=== PATIENT | female | born 1980 | race Caucasian/White ===

== ENCOUNTER 2016-04-01 09:45 | Inpatient (IN) | payer BC ==
[~2016-04-01] VITALS: Ht 175.3 cm; Wt 99.5 kg
[~2016-04-01 09:45] MED LIST: PRENTAB26 PO; PROB1TAB16 PO
[2016-04-01] MEDS ORDERED: LACTATED RINGER'S 1000ML 1,000 ML IV PRN (10:30)
[2016-04-01] MEDS ORDERED: LACTATED RINGER'S 1000ML 1,000 ML IV SCH (10:30)
[2016-04-01] MEDS ORDERED: PENICILLIN G POTASSIUM IV 6 MU in DEXTROSE 5% 250ML 250 ML IV ONE (10:45)
[2016-04-01 10:59] LABS: HEMATOCRIT 36.1 % (37-47); MEAN CELL VOLUME 89.1 fL (80-100); MEAN CORPUSCULAR HEMOGLOBIN 32.1 pg (25-34); MEAN PLATELET VOLUME 11.1 fL (7.4-10.4); PLATELET COUNT 218 K/uL (130-400); RED BLOOD COUNT 4.05 M/uL (4.2-5.4); WHITE BLOOD COUNT 11.63 K/uL (4.8-10.8)
--- NOTE | 2016-04-01 11:41 | HISTORY & PHYSICAL EXAMINATION ---
DATE OF ADMISSION: 04/01/2016 CHIEF COMPLAINT: Contractions. HISTORY OF PRESENT ILLNESS: The patient is a 35-year-old at 41 weeks and 1 day of gestation who has been feeling contractions since 6:30 a.m. this morning. They have been coming every 5 minutes and they have been getting more regular and more painful. She had 1 time small amount of leakage, which was clear and nothing since then. No vaginal bleeding and she reports good movements. She denies headaches, change in her vision, nausea, vomiting, epigastric or right upper quadrant pain. She denies fevers, chills, chest pain, shortness of breath or leg pain. Her has been uncomplicated except 1) Advanced maternal age. She had panorama testing which was with low risk. 2) GBS positive PAST MEDICAL HISTORY: As above and generalized anxiety disorder. She sees a therapist, no medications since September 2015. PAST SURGICAL HISTORY: LEEP procedure of cervix in 2012 and D\T\C in 1995 and 1996 and ear surgery. MEDICATIONS: vitamins, vitamin D3 1000 units a day and probiotic. ALLERGIES: No known drug allergies. SOCIAL HISTORY: The patient denies smoking, alcohol or drug use. GYNECOLOGIC HISTORY: The patient has a history of abnormal Pap smears for which she had LEEP procedure in 2012, normal Paps since then. The patient denies any history of STDs including Chlamydia, gonorrhea, or herpes. OBSTETRICAL HISTORY: She had a therapeutic in 1995 with D\T\C, again repeat one in 1996 with D\T\C and this is her third . LABS: Her blood type is A positive, antibody screen negative. H\T\H was 13/36, platelets 288. GC chlamydia cultures were negative, rubella titer positive, RPR nonreactive, hepatitis B surface antigen negative, HIV negative. Her MSAFP testing was negative. Panorama screen testing was negative. Glucola was 106 mg per deciliter. H\T\H was 12/36. GBS culture was positive on February 17. PHYSICAL EXAMINATION: GENERAL: The patient is alert, oriented x3, not in acute distress. VITAL SIGNS: Stable, afebrile, blood pressure 136/84, respirations 18, temperature 98, pulse 86. CARDIOVASCULAR SYSTEM: S1, S2, RRR. LUNGS: Clear to auscultation bilaterally. ABDOMEN: Soft, gravid, Joel 8-8.5 pounds. EXTREMITIES: Nontender, no edema. PELVIC: Speculum shows cervix with bulging membranes. No pulling and the cervix is friable and bleeding upon touch. Nitrazine testing was not performed due to active bleeding and ferning is negative. Her cervix is 5-6 cm dilated, 80%, -2 with bulging membranes and vertex. NST shows heart rate 140s, category 1. Tocometer contractions every 2-3 minutes. ASSESSMENT AND PLAN: The patient is a 35-year-old -0-2-0, at 41 weeks and 1 day of gestation presenting with contractions and in active labor. Vital signs stable, afebrile. heart rate reassuring. GBS positive. Plan is admit, IV penicillin and expecting management for now. The patient declines epidural or any other pain managements. She has plan. All questions were answered. HUNTER
[2016-04-01 12:27] VITALS: Ht 175.3 cm; Wt 99.5 kg
[2016-04-01] MEDS ORDERED: CHOL400T5 (12:33)
[2016-04-01] MEDS ORDERED: INFLUENZA ADMINISTRATION CHARGE ONE (14:45)
[2016-04-01] MEDS ORDERED: INFLUENZA VIRUS QUAD VACCINE 0.5 ML SYR IM. ONE (14:45)
[2016-04-01] MEDS: PENICILLIN G POTASSIUM IV 3 MU in DEXTROSE 5% 100ML 100 ML IV PRN ×3 (15:01→22:41)
[2016-04-01] MEDS ORDERED: BUPIVACAINE 0.25% 30 ML VIAL ONE (18:47)
[2016-04-01] MEDS ORDERED: EpHEDrine SULFATE INJ 50 MG/ML AMP ONE (18:47)
[2016-04-01] MEDS ORDERED: FENTANYL 2MCG/ML ROPIV 1.25MG/ML 100ML BAG EPI ONE (18:47)
[2016-04-01] MEDS ORDERED: FENTANYL CITRATE INJ 50 MCG/1 ML 2 ML VIAL ONE (18:48)
[2016-04-01] MEDS ORDERED: LACTATED RINGER'S 1000ML 500 ML IV PRN (19:46)
[2016-04-01] MEDS ORDERED: NALOXONE HCL INJ 1 MG in SODIUM CHLORIDE 0.9% 1000ML 1,000 ML IV PRN ×4 (19:46)
[2016-04-01] MEDS ORDERED: FENTANYL 2MCG/ML ROPIV 1.25MG/ML 100ML BAG EPI PRN (20:00)
[2016-04-01] MEDS ORDERED: DiphenhydrAMINE HCL 50 MG/ML VIAL IV PRN (20:00)
[2016-04-01] MEDS ORDERED: ONDANSETRON INJ 2 MG/ML 2 ML VIAL IV PRN (20:00)
[2016-04-01] MEDS ORDERED: PROMETHAZINE HCL INJ 25 MG in SODIUM CHLORIDE 0.9% 50ML 50 ML IV PRN (20:00)
[2016-04-01] MEDS ORDERED: NALBUPHINE HCL INJ 10 MG/ML AMP IV PRN (20:00)
[2016-04-01] MEDS ORDERED: EpHEDrine SULFATE INJ 50 MG/ML AMP IV PRN (20:00)
[2016-04-01] MEDS ORDERED: NALOXONE HCL INJ 0.4 MG/1 ML VIAL/CARP IV PRN (20:00)
[2016-04-01] MEDS ORDERED: NURSING VERBAL MED ORDER ONE (23:30)
[2016-04-01] MEDS ORDERED: CALCIUM CARBONATE 500 MG CHEWABLE PO PRN (23:30)
[2016-04-02] MEDS ORDERED: OXYTOCIN 30 UNITS/500ML NSS IV ONE (00:09)
[2016-04-02] MEDS ORDERED: CEFAZOLIN SOD 2000 MG in DEXTROSE 5% 50ML IV SCH (00:45)
[2016-04-02] MEDS ORDERED: NURSING VERBAL MED ORDER ONE ×2 (00:45→04:30)
[2016-04-02] MEDS ORDERED: LACTATED RINGER'S 1000ML 1,000 ML IV SCH ×3 (01:03→05:00)
[2016-04-02] MEDS ORDERED: ACETAMINOPHEN 325 MG TAB PO PRN (01:15)
[2016-04-02] MEDS ORDERED: SUPERCREAM 0.870 % 15GM JAR EXT PRN (01:15)
[2016-04-02] MEDS ORDERED: OXYCODONE/ACETAMINOPHEN 5-325 TAB PO PRN (01:15)
[2016-04-02] MEDS ORDERED: DIPHTHERIA/TETANUS/PERTUSSIS 0.5 ML SYR/VIAL IM. ONE (01:15)
[2016-04-02] MEDS ORDERED: MEASLES, MUMPS & RUBELLA VIRUS VIAL SQ. ONE (01:15)
[2016-04-02] MEDS ORDERED: BENZOCAINE 20% AER SPR 82.5 GM CAN EXT PRN (01:15)
[2016-04-02] MEDS ORDERED: HYDROCORTISONE ACETATE 25 MG SUPP PR PRN (01:15)
[2016-04-02] MEDS ORDERED: LANOLIN OINT EXT PRN ×2 (01:15)
[2016-04-02] MEDS ORDERED: OXYTOCIN 30 UNITS/500ML NSS IV PRN (01:15)
[2016-04-02] MEDS ORDERED: GENTAMICIN CONSULT ACTIVE PRN (01:30)
[2016-04-02] MEDS: AMPICILLIN IV 2,000 MG in SODIUM CHLOR 0.9% AD-VAN 100ML 100 ML IV SCH ×4 (02:32→19:55)
[2016-04-02] MEDS: IBUPROFEN 600 MG TAB PO PRN ×5 (03:09→21:16)
[2016-04-02] MEDS: GENTAMICIN INJ 150 MG in DEXTROSE 5% 100ML 100 ML IV SCH ×3 (03:10→18:43)
[2016-04-02 03:20] VITALS: BP 135/75; PULSE 110; TEMP 36.7; O2SAT 95
--- NOTE | 2016-04-02 04:02 | DELIVERY SUMMARY ---
DATE OF OPERATION: 04/02/2016 TIME OF DELIVERY OF BABY: 0020. TIME OF DELIVERY OF PLACENTA: 0025. DETAILS OF DELIVERY: The patient was found to be fully dilated and desired to push. She pushed for about 1 hour and 20 minutes. heart rate was found to be tachycardic, around 170s-190s, and the head was . Maternal perineum was found to be short and recommended a mediolateral episiotomy to prevent rectal or anal sphincter injury. The patient agreed with the plan. A mediolateral episiotomy was opened on the right side and head was delivered without difficulty. Baby was facing upward with occiput posterior position. There was a tight nuchal cord around the neck and around the body, which was reduced, while delivering the shoulders with minimal traction and then the baby was handed off to the mother when the baby was found to be passing meconium. Mouth and nose were suctioned. Baby was vigorously crying. Mother desired delayed cord clamping. Cord was clamped after 2 minutes and then cut, it was a 3-vessel cord. Cord blood was obtained. Vagina and perineum were checked for lacerations. There was only right mediolateral episiotomy, no other lacerations were found. Rectal exam was done and confirmed to be second-degree laceration. Good sphincter tone was noted. Gloves were changed. Placenta was found to be in the vagina, delivered spontaneously intact and complete. Uterus was explored. There were some membranes in the lower uterine segment, they were removed, and the upper side of the uterus was empty. Fundus was firm. Lower segment was cleared off all clots and debris. Maternal temperature was felt to be high during this exam and her temperature during second stage of labor was 99.1 Fahrenheit and right after delivery it was 102.3 Fahrenheit. Maternal tachycardia was also noted. Decision was made to start an antibiotic for suspected intraamniotic infection and antibiotic was ordered. Then, the episiotomy was repaired with 2-0 Vicryl in a running locked fashion, bringing the vaginal mucosa together, perineal body muscles and bulbocavernosus muscles together, skin in a subcuticular fashion. Excellent hemostasis was achieved. Rectal exam was done and found to have good sphincter tone, no sutures were felt. Gloves were changed. Mother and baby tolerated the procedure well. Sponge, lap, needle and instrument counts were correct x2. Baby was a viable female , Apgars 8/9. Weight is pending. No complications happened. I was present during the whole procedure. I attest to the content of the Intraoperative Record and any orders documented therein. Any exceptions are noted below. MTDD
[2016-04-02 07:30] VITALS: BP 116/69; PULSE 87; TEMP 36.7; O2SAT 96
[2016-04-02] MEDS: FERROUS SULFATE 325 MG TAB PO SCH (08:04)
[2016-04-02] MEDS: PRENATAL VITAMIN TAB PO SCH (08:04)
[2016-04-02] MEDS: DOCUSATE SODIUM 100 MG CAP PO SCH ×2 (08:04→19:55)
[2016-04-02 08:22] LABS: HEMATOCRIT 29.8 % (37-47); MEAN CELL VOLUME 88.7 fL (80-100); MEAN CORPUSCULAR HEMOGLOBIN 31.5 pg (25-34); MEAN CORPUSCULAR HGB CONC 35.6 g/dl (32-36); PLATELET COUNT 185 K/uL (130-400); RED BLOOD COUNT 3.36 M/uL (4.2-5.4); WHITE BLOOD COUNT 24.75 K/uL (4.8-10.8)
--- NOTE | 2016-04-02 09:10 | Anesthesia Procedure Note ---
Anesthesia Epidural Removal Nt Date & Time Apr 02, 2016 at 09:10 Vital Signs Pain Intensity: 3.5 Vital Signs Past 12 Hours Date Time Temp Pulse Resp B/P Pulse Ox O2 Delivery O2 Flow Rate FiO2 04/02/16 07:30 36.7 87 16 116/69 96 Room Air 04/02/16 03:20 95 Room Air 04/02/16 03:20 36.7 110 18 135/75 95 Room Air Notes Mental Status: alert / awake / arousable, participated in evaluation Nausea / Vomiting: adequately controlled Pain: adequately controlled Airway Patency, RR, SpO2: stable & adequate BP & HR: stable & adequate Hydration State: stable & adequate Neuraxial Anesthesia: was administered Anesthetic Complications: no major complications apparent, pt satisfied with anesthetic care Epidural: removed without complications, with tip intact
[2016-04-02 12:30] VITALS: BP 121/68; PULSE 91; TEMP 36.6
--- NOTE | 2016-04-02 15:37 | Pharmacy Progress Note ---
Pharmacy Antibiotic Consult Date of Service: Apr 02, 2016. Pharmacy Dosing Scope Pharmacy is consulted to initiate Gentamicin IV dosing therapy, order appropriate labs and adjust drug dose/frequency. Subjective The patient is a 35 year old female admitted on Apr 01, 2016 at 10:31. Objective Height (Feet): 5 Height (Inches): 9.00 Weight (Kilograms): 99.500 Lab Results (24hrs): Laboratory Tests Test 04/02/16 07:41 White Blood Count 24.75 K/uL Assessment & Plan 35 year old female receiving empiric ampicillin and gentamicin for suspected intraamniotic infection. Plan Will continue ordered dose of Gentamicin 150 mg (1.9 mg/kg) IV every 8 hours as ordered by OB physician. Peak and trough level ordered for 04/03. Peak after the 0300 dose and trough prior to the 1100 dose. Goal peak level estimate: between 0.5 - 1.5 mcg/mL. Goal trough level estimate: between 4 - 7 mcg/mL. Pharmacy will continue to follow and will adjust dose/frequency as necessary. Thank you
[2016-04-02 16:25] VITALS: BP 129/80; PULSE 86; TEMP 36.5; O2SAT 96
[2016-04-02 20:05] VITALS: BP 126/75; PULSE 86; TEMP 36.5; O2SAT 95
[2016-04-03 00:15] VITALS: BP 117/75; PULSE 79; TEMP 36.6
[2016-04-03] MEDS: AMPICILLIN IV 2,000 MG in SODIUM CHLOR 0.9% AD-VAN 100ML 100 ML IV SCH ×5 (01:53→20:22)
[2016-04-03] MEDS: GENTAMICIN INJ 150 MG in DEXTROSE 5% 100ML 100 ML IV SCH ×3 (02:57→19:15)
[2016-04-03] MEDS ORDERED: GENT. PEAK 1 EA IV SCH (03:00)
[2016-04-03] MEDS: IBUPROFEN 600 MG TAB PO PRN ×3 (03:06→15:17)
[2016-04-03 04:00] VITALS: BP 120/78; PULSE 80; TEMP 36.7
[2016-04-03 06:04] LABS: CREATININE 0.74 mg/dl (0.60-1.20)
[2016-04-03 08:00] VITALS: BP 132/84; PULSE 98; TEMP 36.5
[2016-04-03] MEDS: FERROUS SULFATE 325 MG TAB PO SCH (08:20)
[2016-04-03] MEDS: DOCUSATE SODIUM 100 MG CAP PO SCH ×2 (08:20→20:22)
[2016-04-03] MEDS: PRENATAL VITAMIN TAB PO SCH (08:21)
[2016-04-03 11:09] LABS: BASO % 0.2 %; BASO ABS # 0.03 K/uL (0-0.2); COMPLETE YES; EOS % 1.3 %; HEMATOCRIT 29.4 % (37-47); IG% 0.3 %; LYMPH % 19.7 %; LYMPH ABS # 2.88 K/uL (1.2-3.4); MEAN CELL VOLUME 89.9 fL (80-100); MEAN CORPUSCULAR HEMOGLOBIN 31.5 pg (25-34); MEAN PLATELET VOLUME 9.9 fL (7.4-10.4); NEUT % 72.5 %; PLATELET COUNT 167 K/uL (130-400); RED BLOOD COUNT 3.27 M/uL (4.2-5.4)
--- NOTE | 2016-04-03 11:13 | OB/GYN Progress Note ---
MDS COORDINATOR Progress Note Date of Service: Apr 03, 2016. Patient is seen and examined. She feels well, no complaints. Ambulating without dizziness Voiding without difficulty Tolerating regular diet with out N&V Bleeding is minimal No fever/ chills/ CP/ SOB/ N&V/ Leg pain Breast feeding without problems Date Time Temp Pulse Resp B/P Pulse Ox O2 Delivery O2 Flow Rate FiO2 04/03/16 04:00 36.7 80 18 120/78 Room Air 04/03/16 00:15 36.6 79 18 117/75 Room Air 04/03/16 00:15 Room Air 04/02/16 20:05 36.5 86 18 126/75 95 Room Air 04/02/16 16:25 36.5 86 16 129/80 96 Room Air 04/02/16 16:25 96 Room Air 04/02/16 12:30 36.6 91 18 121/68 Room Air Last 24 Hours Test 04/03/16 05:00 04/03/16 05:07 04/03/16 10:30 Creatinine 0.74 mg/dl Est Creatinine Clear Calc Drug Dose 132.0 ml/min Estimated GFR () 120.8 Estimated GFR (Non- 104.2 Gentamicin Level Peak 4.8 mcg/ml White Blood Count 14.60 K/uL Red Blood Count 3.27 M/uL Hemoglobin 10.3 g/dL Hematocrit 29.4 % Mean Corpuscular Volume 89.9 fL Mean Corpuscular Hemoglobin 31.5 pg Mean Corpuscular Hemoglobin Concent 35.0 g/dl Platelet Count 167 K/uL Mean Platelet Volume 9.9 fL Neutrophils (%) (Auto) 72.5 % Lymphocytes (%) (Auto) 19.7 % Monocytes (%) (Auto) 6.0 % Eosinophils (%) (Auto) 1.3 % Basophils (%) (Auto) 0.2 % Neutrophils # (Auto) 10.57 K/uL Lymphocytes # (Auto) 2.88 K/uL Monocytes # (Auto) 0.88 K/uL Eosinophils # (Auto) 0.19 K/uL Basophils # (Auto) 0.03 K/uL RDW Standard Deviation 47.7 fL RDW Coefficient of Variation 14.5 % Immature Granulocyte % (Auto) 0.3 % Immature Granulocyte # (Auto) 0.05 K/uL PE: General: Alert, orientedx3, NAD Abd: soft, NT, fundus firm, below Umbilicus Perineum intact, Lochia rubra minimal Ext; NT, no edema AP: 35 yo s/p , ppd# 1, on IV Amp/Gent for suspected intraamniotic infection VSS Afebrile doing well Continue routine care All questions were answered D/C home tomorrow
--- NOTE | 2016-04-03 13:06 | Pharmacy Progress Note ---
Pharmacy Antibiotic Prog Note Date of Service: Apr 03, 2016. Subjective: The patient is currently receiving gentamicin 150mg IV q8h (1.9mg/kg adjusted bw ). The patient is currently on day #2 of IV therapy. Objective: Height (Feet): 5 Height (Inches): 9.00 Weight (Kilograms): 99.500 Levels: Item Value Date Time Gentamicin Level Peak 4.8 mcg/ml L 04/03/16 0507 Gentamicin Level Trough 1.80 mcg/ml H 04/03/16 1030 Lab Results (24hrs): Laboratory Tests Test 04/03/16 05:00 04/03/16 10:30 Creatinine 0.74 mg/dl White Blood Count 14.60 K/uL Red Blood Count 3.27 M/uL Hemoglobin 10.3 g/dL Hematocrit 29.4 % Mean Corpuscular Volume 89.9 fL Mean Corpuscular Hemoglobin 31.5 pg Mean Corpuscular Hemoglobin Concent 35.0 g/dl Platelet Count 167 K/uL Mean Platelet Volume 9.9 fL Neutrophils (%) (Auto) 72.5 % Lymphocytes (%) (Auto) 19.7 % Monocytes (%) (Auto) 6.0 % Eosinophils (%) (Auto) 1.3 % Basophils (%) (Auto) 0.2 % Neutrophils # (Auto) 10.57 K/uL Lymphocytes # (Auto) 2.88 K/uL Monocytes # (Auto) 0.88 K/uL Eosinophils # (Auto) 0.19 K/uL Basophils # (Auto) 0.03 K/uL Recent Pertinent Medications: Item Value Date Time Gentamicin 103.75 ml @ 100 mls/hr 04/02/16 0300 Sulfate 150 mg/ Q8H/IV 04/03/16 1223 Dextrose Item Value Date Time Ampicillin Sodium 100 ml @ 200 mls/hr 04/02/16 0200 2000 mg/Sodium Q6H/IV 04/03/16 0807 Chloride Assessment & Plan: 35 yo post- female on IV Amp/Gent for suspected intra-amniotic infection Goal peak level: ~4-7mcg/mL Goal trough level: ~0.5-1.5mcg/mL Peak drawn: 4.8mcg/mL Trough drawn: 1.8mcg/mL --> levels are in acceptable range to continue current dosing until planned discharge for tomorrow --> if pt should remain here/on gent IV tx, would recheck levels as needed Pharmacy will continue to follow and will adjust dose/frequency as necessary. Thank you
[2016-04-03 15:00] VITALS: BP 131/80; PULSE 80; TEMP 36.5
[2016-04-03 19:25] VITALS: BP 118/78; PULSE 76; TEMP 36.6
[2016-04-03] MEDS ORDERED: BISACODYL 5 MG TABEC PO SCH (20:00)
[2016-04-03 23:00] VITALS: BP 137/79; PULSE 94; TEMP 36.5
[2016-04-04] MEDS: AMPICILLIN IV 2,000 MG in SODIUM CHLOR 0.9% AD-VAN 100ML 100 ML IV SCH ×3 (02:09→14:00)
[2016-04-04] MEDS: IBUPROFEN 600 MG TAB PO PRN ×2 (02:13→09:51)
[2016-04-04 03:08] VITALS: BP 136/79; PULSE 88; TEMP 36.6
[2016-04-04] MEDS: GENTAMICIN INJ 150 MG in DEXTROSE 5% 100ML 100 ML IV SCH ×2 (03:11→10:56)
[2016-04-04 06:55] LABS: CREATININE 0.78 mg/dl (0.60-1.20)
[2016-04-04] MEDS ORDERED: BISACODYL 10 MG SUPP PR PRN (07:00)
[2016-04-04] MEDS: PRENATAL VITAMIN TAB PO SCH (08:22)
[2016-04-04] MEDS: FERROUS SULFATE 325 MG TAB PO SCH (08:22)
[2016-04-04] MEDS: DOCUSATE SODIUM 100 MG CAP PO SCH (08:22)
[2016-04-04 08:30] VITALS: BP 130/76; PULSE 96; TEMP 36.4
[2016-04-04] MEDS ORDERED: MTR600X PO (08:38)
[2016-04-04] MEDS ORDERED: CEPH-571 PO (08:38)
--- NOTE | 2016-04-04 08:41 | Discharge Instructions ---
Discharge Instructions Admission Reason for Admission: R/O Labor Discharge Discharge Diagnosis / Problem: term delivered Discharge Goals Goal(s): Routine recovery after delivery Activity Recommendations Activity Limitations: as noted below Lifting Limitations: no more than 10 pounds May Resume Sexual Activity: after follow-up appointment Shower/Bathe: no limitations Driving or Machine Use: resume 3 days after discharge . Instructions / Follow-Up Instructions / Follow-Up ACTIVITY RECOMMENDATIONS: * Gradual return to full activity over the next 2-3 weeks. * No lifting - nothing heavier than baby over the next 2-3 weeks. * Do not engage in vigorous exercise, sexual activity or sports until cleared by your physician. * Do not drive or operate any motorized equipment until cleared by your physician. * You may shower/bathe daily. BREAST CARE: If you are not breast feeding: * Wear a supportive bra 24 hours a day for one to two weeks. * Avoid stimulating your breasts and nipples as much as possible during the first few weeks after delivery. * When taking a shower, have the warm water hit your back, not breasts. * When your breasts feel full, apply ice packs. Usually three to four times a day helps ease the discomfort. * Take a mild pain medication (Tylenol/Motrin) when you are uncomfortable. If breast feeding: * Use breast milk to lubricate nipples. Lansinoh cream may be used for sore nipples. You do not need to remove cream prior to breast feeding. If using a different brand of cream, check the label for directions regarding removal of cream prior to nursing. * Wear a supportive bra. * If having problems with breasts or breast feeding, call a railroad design consultant or your health care provider. EPISIOTOMY CARE: After delivery, if you have an episiotomy (stitches), the following steps will ease discomfort and aid healing. * For the first 24 hours after delivery, place ice packs next to your episiotomy to help reduce swelling. * After the first 24 hour-period, sitz baths, either portable or in the tub, are suggested. A shower with a shower arm sprayed over the episiotomy may be comforting. * Ginette care should be done after each voiding and bowel movement. Squirt warm water from a plastic bottle over the perineum (region of the body between the anus and urinary opening) and pat dry. * Use Dermoplast to ease discomfort. Shake container. [place] directly over the episiotomy. * Place a Tucks on a clean sanitary pad next to your episiotomy. OVER THE COUNTER MEDICATION: * For discomfort or pain, you may use Acetaminophen (Tylenol), Ibuprofen (Advil ), or Naproxen (Aleve) following the package directions. * For constipation you may use Colace following the package directions. SPECIAL CARE INSTRUCTIONS: When you are discharged from the hospital, it is important for you to follow the instructions listed below: * During the first week at home, you should be able to care for yourself and your baby. In addition, the usual light household activities are encouraged. * Limit your activities to the way you feel. Do not try to clean the house or move furniture. Be sensible. * If you actively engage in sports and have done so up until the time of your delivery, you may resume these activities as soon as you feel able. This may take up to one month or even longer. Use good judgment. * Continue to take your vitamins for at least six weeks after the of your baby. * Your diet need not be limited unless you were on a special diet before your delivery. Breast-feeding mothers need around 2500 calories per day and at least 64-80 ounces of fluid per day (8 to 10 glasses). * You should eat foods from the four major food groups. Crash diets or fad diets are to be avoided. Eating lean meats, fresh fruits and vegetables, low-fat dairy products, high fiber foods and a regular exercise program, will help you get back to your pre- weight without putting your health at risk. * Constipation is sometimes a problem after delivery. Take a mild laxative as needed. If breast feeding, Milk of Magnesia is acceptable to use. You may use a suppository or Fleets enema if no episiotomy. * A daily shower or tub bath is suggested. Be sure to thoroughly and gently dry the perineum. * A bloody vaginal discharge will usually continue until around four weeks post . A small amount of bleeding may continue for as long as six weeks. Vaginal discharge changes from the bright red bleeding after delivery to pink then brownish and finally yellowish-pink before becoming white and disappearing. * Bleeding may increase with activity. Your first period may come in 4-8 weeks. If you are breast feeding, your period may be delayed even longer. * [place] (sex) can begin whenever both you and your partner feel comfortable and do not have any form of genital infection. It is recommended that you wait until after your return appointment and discuss with your physician. If you have questions, please talk to your health care practitioner. A condom should be used to prevent infection and . * Foreplay, gentle intercourse and lubrication is very important the first several times to prevent pain. A water-based lubricant such as K-Y jelly or Astroglide may be used. * Tampons may be used six weeks after delivery. * Douching should be avoided for 6 weeks after delivery. * If you have RH negative blood and your baby is RH positive, you will receive RHOGAM by injection prior to discharge. The nurse will give you a card to keep with you that has the date and place that you received RHOGAM after delivery. * During your care, you had a Rubella screen done to check for the presence of rubella antibodies in your blood. If your test was negative, you will receive a Rubella vaccine prior to discharge. This vaccine may cause a fever, soreness at the injection site and flu-like symptoms. If these symptoms persist, notify your health care practitioner. is not advised for three months after a Rubella vaccine. There is a higher chance of having a baby with defects if conceived within three months of getting the vaccine. * If you were discharged 24 hours from delivery or before 48 hours: Visiting nurses will come to your home 48 hours after discharge to assess you and your baby. The visiting nurse will meet with you while you are in the hospital to arrange a time and get directions to your home. * Verbalizes understanding of car seat law as reviewed with patient nursing. * Car Seat hand-out given and reviewed with patient by nursing. * Shaken baby information reviewed with patient by nursing. Call you doctor if: * Heavy bleeding (saturating several pads an hour) or passing clots the size of your fist. * A fever >101 degrees F (38.3 degrees C) on two occasions four hours apart and/or chills. * Unusual pain in the pelvic or vaginal areas. * "Baby Blues" lasting longer than two weeks. If you have any questions or concerns, call your health care practitioner at . FOLLOW-UP VISIT: * Please call the office at to schedule a 6 week examination. It is important you keep this appointment. * It is important for you to make arrangements for either yearly or twice yearly check-ups thereafter. Current Hospital Diet Patient's current hospital diet: Regular OB Diet Discharge Diet Recommended Diet: Regular OB Diet Pending Studies Studies pending at discharge: no Medical Emergencies . Who to Call and When: Medical Emergencies: If at any time you feel your situation is an emergency, please call 911 immediately. . Non-Emergent Contact Non-Emergency issues call your: Primary Care Provider . . "Provider Documentation" section prepared by Juni Nguyen. VTE Core Measure Inpt VTE Proph given/why not?: Enoxaparin (Lovenox)SQ, Treatment not indicated
[2016-04-04 14:58] VITALS: BP_DIAS 76; PULSE 96; TEMP 36.4
== END 2016-04-04 15:10 | disposition home or self-care (01) | DRG 774 ==
LOC: C.OPB 09:45 → C.LD 09:46 → C.OPB 10:31 → C.LD 10:31 → C.OBG 04-02 03:17
PROVIDERS: ADMIT Obstetrics & Gynecology; ATTEND Obstetrics & Gynecology
PROC: 10E0XZZ Delivery of Products of Conception, External Approach (ICD-10-PCS; principal; 2016-04-02)
PROC: 0W8NXZZ Division of Female Perineum, External Approach (ICD-10-PCS; 2016-04-02)
PROC: 4A1HXCZ Monitoring of Products of Conception, Cardiac Rate, External Approach (ICD-10-PCS; 2016-04-02)
PROC: 10907ZC Drainage of Amniotic Fluid, Therapeutic from Products of Conception, Via Natural or Artificial Opening (ICD-10-PCS; 2016-04-02)
DX: O48.0 Post-term pregnancy (principal); O75.2 Pyrexia during labor, not elsewhere classified; Z3A.41 41 weeks gestation of pregnancy; O09.523 Supervision of elderly multigravida, third trimester; O99.344 Other mental disorders complicating childbirth; F41.1 Generalized anxiety disorder; R00.0 Tachycardia, unspecified; O76 Abnormality in fetal heart rate and rhythm complicating labor and delivery; O99.824 Streptococcus B carrier state complicating childbirth; O75.89 Other specified complications of labor and delivery; Z87.891 Personal history of nicotine dependence; Z80.9 Family history of malignant neoplasm, unspecified; Z82.49 Family history of ischemic heart disease and other diseases of the circulatory system; Z84.89 Family history of other specified conditions; Z79.899 Other long term (current) drug therapy; O69.81X0 Labor and delivery complicated by cord around neck, without compression, not applicable or unspecified; Z37.0 Single live birth